=== PATIENT | female | born 1955 | race Caucasian/White ===

== ENCOUNTER 2023-11-03 09:03 | Day surgery (SDC) | payer MEDICARE, OTHER ==
[2023-10-28 11:43] VITALS: BP 136/79
[~2023-11-03] VITALS: Ht 152.4 cm; Wt 77.3 kg
[~2023-11-03 09:03] MED LIST: ACETAMINOPHEN325 M1 PO; ALEVE220 M1 PO; BACLOFEN10 MG PO; CEFAZOLIN SODIUM 2 GM/20 ML SYR IV SCH; COL-RITE100 MG PO; CYMBALTA60 MG PO; FLONASE ALLERG9.9 ML; IBLOOD GLUCOSE TEST STRIP 1 EA TEST VI PRN; JARDIANCE10 MG PO; LACTATED RINGER'S 1,000 ML IV SCH; LIDOCAINE HCL 1% 5 ML SDV INJ ONE; LIPITOR80 MG GT; METFORMIN HCL1000 M2 PO; METHOCARBAMOL750 MG PO; NEURONTIN600 MG PO; OMEPRAZOLE20 MG PO; SUBOXONE 8 MG-1 EAC1 SL; TOPROL XL25 MG PO; TRIAMCINOLONE A15 G1 TOP; ZESTRIL40 MG PO
[2023-11-03 09:22] VITALS: BP 102/74
[2023-11-03] MEDS ORDERED: LEVOFLOXACIN500 MG PO (09:38)
[2023-11-03] MEDS ORDERED: VENTOLIN HFA18 GM INH (09:38)
[2023-11-03] MEDS ORDERED: BENZONATATE100 MG PO (09:39)
[2023-11-03] MEDS ORDERED: ondansetron HCL 4 MG/2 ML VIAL IV PRN (10:00)
[2023-11-03] MEDS ORDERED: PHENAZOPYRIDINE HCL 95 MG TAB PO PRN (10:00)
[2023-11-03] MEDS ORDERED: HYDROmorphone HCL 1 MG/ML SYR IV PRN (10:00)
[2023-11-03] MEDS ORDERED: PROCHLORPERAZINE EDISYLATE 10 MG/2 ML VIAL IV PRN (10:00)
[2023-11-03] MEDS ORDERED: OXYCODONE/APAP 5/325 TAB PO PRN (10:00)
[2023-11-03] MEDS ORDERED: KETOROLAC TROMETHAMINE 15 MG/ML VIAL IV PRN (10:00)
[2023-11-03] MEDS ORDERED: propofoL 200 MG/20 ML VIAL ONE (10:34)
[2023-11-03] MEDS ORDERED: LIDOCAINE HCL 2% 5 ML SDV ONE (10:34)
[2023-11-03] MEDS ORDERED: ondansetron HCL 4 MG/2 ML VIAL ONE (10:34)
[2023-11-03] MEDS ORDERED: SEVOFLURANE 250 ML BTL ONE (10:42)
[2023-11-03] MEDS ORDERED: iopamidoL 30 ML VIAL ONE (11:25)
[2023-11-03] MEDS ORDERED: fentaNYL citrate 100 MCG/2 ML VIAL ONE (11:44)
[2023-11-03] MEDS ORDERED: KETOROLAC TROMETHAMINE 30 MG/ML VIAL ONE (12:07)
[2023-11-03] MEDS ORDERED: PHENYLEPHRINE HCL 10 MG/ML VIAL ONE (12:09)
--- NOTE | 2023-11-03 14:07 | NUR ---
11/03/23 1407 Marisabel Sands 1342 PT ARRIVED IN PACU NON RESPONSIVE TO NOXIOUS STIMULI. CHIN LIFT HELD BY RN. 1347 BLOOD SUGAR 87. ANESTHESIA AWARE AND GIVING MEDS FOR LOW BP OF 76/46. 1355 PT REACTIVE. NO CHIN LIFT REQUIRED AT THIS TIME. 1405 NO C/O'S. SLEEPY.
[2023-11-03] MEDS ORDERED: HYDROmorphone HCL 1 MG/ML SYR IV ONE (14:45)
[2023-11-03 15:14] VITALS: BP 101/45
--- NOTE | 2023-11-03 15:18 | NUR ---
RETURNED WATER AND CRACKERS GIVEN. HAS CALL LIGHT. STATES 45 MIN AWAY.
[2023-11-03 16:28] VITALS: BP 142/75
--- NOTE | 2023-11-03 16:31 | NUR ---
IN PT ROOM FOR ASSISTING GETTING DRESSED. PT STATES PAIN REMAINS AROUND THE SAME. PT STATES SHE SELF CATHS AT HOME AND USUALLY DOES SO ONLY ONCE DAILY. VS TAKEN. PT ENCOURAGED TO GO TO ED IF UNABLE TO SELF CATH BY END OF DAY, PT STATES VERBAL UNDERSTANDING. PT CONTINUES TO TOLERATE ORALS WITHOUT DIFFICULTY OR ANY NAUSEA. CALL LIGHT WITHIN REACH, WAITING FOR FOR RIDE.
--- NOTE | 2023-11-03 16:50 | NUR ---
THIS RN IN ROOM TO PROVIDE DISCHARGE EDUCATION AT THIS TIME. PT REPORTS NO FURTHER NEEDS OR QUESTIONS AND STATES VERBAL UNDERSTANDING TO DISCHARGE EDUCATION PROVIDED. CALL LIGHT WITHIN REACH, PT STATES NO FURTHER NEEDS OR QUESTIONS AT THIS TIME. PT SITTING AT EDGE OF BED FOR COMFORT, CALL LIGHT WITHIN REACH.
--- NOTE | 2023-11-03 16:59 | NUR ---
TURNED TO ABDOMIN.
--- NOTE | 2023-11-03 17:23 | NUR ---
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 PT OFF OF UNIT VIA WC TO PASSENGER SIDE OF VEHICLE. ALL BELONGINGS IN PT POSSESSION AT THIS TIME. PT REPORTS NO FURTHER NEEDS OR QUESTIONS AT THIS TIME.
[2023-11-06 12:39] LABS: CALCULI MASS 2 mg (())
== END 2023-11-03 16:40 | disposition home or self-care (01) ==
LOC: DS 09:03 → OPS 09:03 → DS 09:30 → OPS 10:30
PROVIDERS: ATTEND Urology
PROC: 0TC08ZZ Extirpation of Matter from Right Kidney, Via Natural or Artificial Opening Endoscopic (ICD-10-PCS; principal; 2023-11-03 10:30)
PROC: 0T768DZ Dilation of Right Ureter with Intraluminal Device, Via Natural or Artificial Opening Endoscopic (ICD-10-PCS; 2023-11-03 10:30)
DX: N20.0 Calculus of kidney (principal); N39.42 Incontinence without sensory awareness; N31.9 Neuromuscular dysfunction of bladder, unspecified; Q24.3 Pulmonary infundibular stenosis; I10 Essential (primary) hypertension; E11.40 Type 2 diabetes mellitus with diabetic neuropathy, unspecified; E78.5 Hyperlipidemia, unspecified; Z88.2 Allergy status to sulfonamides; Z79.84 Long term (current) use of oral hypoglycemic drugs; Z79.899 Other long term (current) drug therapy
CPT/HCPCS: 00910; 74420; 82365; C1769; C2617; J0690; J1170; J1885; J2001; J2371; J2405; J2704; J3010; J7121; Q9967